=== PATIENT | male | born 1985 | race African-American/Black ===

== ENCOUNTER 2021-04-27 20:34 | Emergency (ER) | payer OTHER ==
[~2021-04-27] VITALS: Ht 175.2 cm; Wt 90.7 kg
[~2021-04-27 20:34] MED LIST: CYCLOBENZAPRINE10 MG PO; MEDROL DOSEPAK4 MG PO; MOBIC7.5 MG PO
[2021-04-28] MEDS ORDERED: METHOCARBAMOL750 M1 PO (01:59)
[2021-04-28] MEDS ORDERED: NAPROSYN500 MG PO (01:59)
== END 2021-04-28 02:27 | disposition home or self-care (01) ==
LOC: ED 20:34
DX: S39.012A Strain of muscle, fascia and tendon of lower back, initial encounter (principal); X58.XXXA Exposure to other specified factors, initial encounter; Y93.89 Activity, other specified; Y92.89 Other specified places as the place of occurrence of the external cause; Y99.8 Other external cause status